=== PATIENT | female | born 1960 | race Caucasian/White ===

== ENCOUNTER 2023-02-24 09:11 | Day surgery (SDC) | payer OTHER ==
[2023-02-23 09:19] VITALS: BMI 27.1
[2023-02-24 09:28] VITALS: RESP 18
[2023-02-24] MEDS ORDERED: ACETAMINOPHEN INJECTION 100 ML IVPB ONE (11:20)
[2023-02-24] MEDS ORDERED: LIDOCAINE HCL/PF 2% SDV 5ML VIAL ONE (11:22)
[2023-02-24] MEDS ORDERED: ceFAZolin SODIUM 1 GM VIAL ONE (11:22)
[2023-02-24] MEDS ORDERED: MIDAZOLAM HCL 2 MG/2 ML SINGLE DOSE VIAL ONE (11:22)
[2023-02-24] MEDS ORDERED: SODIUM CHLORIDE 0.9% P/F 10 ML VIAL IJ ONE (11:22)
[2023-02-24] MEDS ORDERED: PROPOFOL 20 ML ONE ×2 (11:22→12:03)
[2023-02-24] MEDS ORDERED: BUPIVACAINE HCL/PF 0.5% (5MG/ML) 10 ML VIAL ONE ×2 (11:25→12:04)
[2023-02-24] MEDS ORDERED: oxyCODONE HCL 5 MG TABLET PO PRN (11:33)
[2023-02-24] MEDS ORDERED: ONDANSETRON 4 MG/2 ML VIAL IVPUSH PRN (11:33)
[2023-02-24] MEDS ORDERED: PROMETHAZINE HCL 25 MG/1 ML VIAL IVPB PRN (11:33)
[2023-02-24] MEDS ORDERED: LACTATED RINGERS SOLUTION 1,000 ML IV SCH (11:45)
[2023-02-24] MEDS ORDERED: DEXAMETHASONE SOD PHOSPHATE 4 MG/1 ML VIAL ONE (11:46)
[2023-02-24] MEDS ORDERED: KETOROLAC TROMETHAMINE 30 MG/1 ML VIAL ONE (11:46)
[2023-02-24 13:24] VITALS: TEMP 97.2
[2023-02-24 14:27] VITALS: BP 122/72; PULSE 68
== END 2023-02-24 14:28 | disposition home or self-care (01) ==
LOC: FASU 09:11
PROVIDERS: ATTEND Orthopaedic Surgery
PROC: 0SBC4ZZ Excision of Right Knee Joint, Percutaneous Endoscopic Approach (ICD-10-PCS; 2023-02-24)
PROC: 0SBC4ZZ Excision of Right Knee Joint, Percutaneous Endoscopic Approach (ICD-10-PCS; principal; 2023-02-24 12:01)
DX: S83.241A Other tear of medial meniscus, current injury, right knee, initial encounter (principal); S83.281A Other tear of lateral meniscus, current injury, right knee, initial encounter; M65.861 Other synovitis and tenosynovitis, right lower leg; X58.XXXA Exposure to other specified factors, initial encounter; Y93.9 Activity, unspecified; Y92.9 Unspecified place or not applicable
CPT/HCPCS: 94760

== ENCOUNTER 2024-07-31 06:56 | Day surgery (SDC) | payer OTHER ==
[2024-07-25 11:53] VITALS: BMI 26.9
[2024-07-31 08:35] LABS: HEMATOCRIT 37.9 % (34.1-44.9); HEMOGLOBIN 12.7 g/dL (11.2-15.7); MCHC 33.5 g/dl (32.2-35.5); MEAN CELL VOLUME 87.9 fl (79.4-94.8); MEAN PLT VOLUME 10.8 fl (9.4-12.3); PLATELET COUNT 261 x10^3/uL (182-369); RDW 13.2 % (12.4-16.4)
[2024-07-31 08:41] LABS: INR 0.94 (0.83-1.09); PROTHROMBIN TIME (PATIENT) 10.2 SEC (9.7-13.0)
[2024-07-31] MEDS ORDERED: MIDAZOLAM HCL 2 MG/2 ML SINGLE DOSE VIAL ONE (10:48)
[2024-07-31] MEDS ORDERED: FENTANYL CITRATE/PF 50 MCG/ML VIAL ONE (10:49)
[2024-07-31] MEDS: FENTANYL CITRATE/PF 50 MCG/ML VIAL IVPUSH ONE (11:04)
[2024-07-31] MEDS: MIDAZOLAM HCL 2 MG/2 ML SINGLE DOSE VIAL IVPUSH ONE (11:04)
[2024-07-31 11:46] VITALS: RESP 16
[2024-07-31 13:48] VITALS: BP 125/68; PULSE 62; TEMP 97.8
== END 2024-07-31 14:06 | disposition home or self-care (01) ==
LOC: JRADIR 06:56
PROVIDERS: ATTEND Nurse Practitioner Family
PROC: 0TB10ZX Excision of Left Kidney, Open Approach, Diagnostic (ICD-10-PCS; principal; 2024-07-31)
DX: N26.9 Renal sclerosis, unspecified (principal); N28.9 Disorder of kidney and ureter, unspecified
CPT/HCPCS: 36415; 50200-LT; 76942-TC; 85027; 85610; 88300-TC; 88329